=== PATIENT | female | born 1980 ===

== ENCOUNTER 2020-10-17 06:39 | Day surgery (SDC) | payer BC ==
[~2020-10-17] VITALS: Ht 170.2 cm; Wt 98.5 kg
== END 2020-10-17 08:40 | disposition home or self-care (01) ==
LOC: ORSCSDS 06:39
PROC: 0DBP8ZX Excision of Rectum, Via Natural or Artificial Opening Endoscopic, Diagnostic (ICD-10-PCS; principal; 2020-10-17)
DX: Z12.11 Encounter for screening for malignant neoplasm of colon (principal); Z80.0 Family history of malignant neoplasm of digestive organs; K62.1 Rectal polyp; E66.9 Obesity, unspecified; Z68.34 Body mass index [BMI] 34.0-34.9, adult; Z79.899 Other long term (current) drug therapy
CPT/HCPCS: 88305; J0461; J2405; J2704; J7120